=== PATIENT | male | born 1990 | race African-American/Black ===

== ENCOUNTER 2019-06-18 13:57 | Emergency (ER) | payer SELFPAY ==
[2019-06-18 14:11] VITALS: BP 148/85
[2019-06-18] MEDS ORDERED: ERYTHROMYCIN 0.5% OPH OINTMENT 3.5 GM TUBE OS ONE (14:37)
--- NOTE | 2019-06-18 14:43 | ER Document Report ---
HPI - HPI Patient complains to provider of: Right eye irritation sore throat Time Seen by Provider: 06/18/19 14:25 Onset: Yesterday Onset/Duration: Sudden Quality of pain: No pain Pain Level: Denies Context: This 29-year-old male presents emergency department with complaints of right eye irritation sore throat. Reports his eye started feeling irritated last night. He denies contacts. Denies trauma. He woke up this morning his eye was matted shut. He also reports his throat is hurting. Hurts to swallow. Denies fever vomiting diarrhea. Denies known exposure to pinkeye or strep throat but he just flew here from [place]. Reports his eye feels like it is itchy but denies pain denies having trouble with his vision. Patient reports he is eating and drinkin g okay but hurts when he swallows. Associated Symptoms: Sore throat Exacerbated by: Denies Relieved by: Denies Similar symptoms previously: No Recently seen / treated by doctor: No Past Medical History - General Information source: Patient - Social History Smoking Status: Unknown if Ever Smoked Cigarette use (# per day): No Frequency of alcohol use: None Drug Abuse: None Lives with: Family Family History: None Patient has suicidal ideation: No Patient has homicidal ideation: No - Medical History Medical History: Negative Surgical Hx: Negative Vertical Provider Document - CONSTITUTIONAL Agree With Documented VS: Yes Exam Limitations: No Limitations General Appearance: WD/WN, No Apparent Distress - HEENT HEENT: Atraumatic, Conjuctival Injection - Slight erythema to the right eye no obvious drainage noted patient is continually wiping his eye with a washcloth., Normocephalic, PERRLA, Pharyngeal Erythema - Some tonsillar hypertrophy to the left tonsil good airway clear voice no trismus no Carlos's no exudate no peritonsillar abscess. negative: Pharyngeal Exudate, Tympanic Membrane Red, Tympanic Membrane Bulging - NECK Neck: Normal Inspection, Supple. negative: Lymphadenopathy-Left, Lymphadenopathy-Right - RESPIRATORY Respiratory: Breath Sounds Normal, No Respiratory Distress - CARDIOVASCULAR Cardiovascular: Regular Rate, Regular Rhythm - GI/ABDOMEN Gastrointestinal: Abdomen Soft, Abdomen Non-Tender - BACK Back: Normal Inspection. negative: CVA Tenderness-Right, CVA Tenderness-Left - MUSCULOSKELETAL/EXTREMETIES Musculoskeletal/Extremeties: DESIREE LINDSAY - NEURO Level of Consciousness: Awake, Alert, Appropriate Motor/Sensory: No Motor Deficit - DERM Integumentary: Warm, Dry, No Rash Course - Re-evaluation Re-evalutation: 06/18/19 14:42 This 29-year-old male presents emergency department with right eye irritation and sore throat. Reports symptoms started last night. Reports he woke up this morning with his right eye matted shut from discharge. Patient just flew to [place] from [place] for work. He denies fever vomiting diarrhea. He reports no known exposure to pinkeye or strep throat. Patient speaking in a clear voice good airway. Strep ordered. Patient will be treated with erythromycin ointment for his bacterial conjunctivitis based on the matting this morning and symptoms.. 06/18/19 15:28 Patient was instructed on negative strep he was instructed on medication for bacterial conjunctivitis. Patient reports that he is traveling from [facility] flying to [place] flying to [place] flying to [place]. He will be treated now with injection of steroids. He was instructed to call back here on Sunday night to follow-up on his throat culture. He verbalized understanding to all instructions. Dictation of this chart was performed using voice recognition software; therefore, there may be some unintended grammatical errors. - Vital Signs Vital signs: Temp Pulse Resp BP Pulse Ox 98.2 F 80 18 148/85 H 99 06/18/19 14:09 06/18/19 14:09 06/18/19 14:09 06/18/19 14:09 06/18/19 14:09 Discharge - Discharge Clinical Impression: Bacterial conjunctivitis of left eye, Sore throat Condition: Stable Disposition: HOME, SELF-CARE Instructions: Conjunctivitis ([facility]), Eyedrop Use ([facility]), Sore Throat ([facility]) Additional Instructions: *You have been evaluated for a bacterial conjunctivitis, sore throat Apply erythromycin ointment half-inch ribbon to the bottom of your right eyelid 4 times a day for the next 5 days. Good handwashing do not reuse washcloths Your strep test was negative. A throat culture is pending. Should you need antibiotics we will contact you in the next 2 to 3 days. *In the meantime gargle with warm salt water and use throat lozenges for comfort *Do not let anyone drink/eat after you *Follow-up with a primary care provider within 1 week for recheck. *Return to ED for worsening condition change, needs Monitor your blood pressure. Your blood pressure was elevated today. This may be because you were anxious, in pain or because you need medication. It is important to follow up with your primary care provider for full evaluation. Forms: Return to Work, Elevated Blood Pressure
[2019-06-18] MEDS ORDERED: DEXAMETHASONE SOD PHOS INJ 10 MG/1 ML VIAL IM ONE (15:28)
== END 2019-06-18 15:39 | disposition home or self-care (01) ==
LOC: ER 13:57
DX: H10.9 Unspecified conjunctivitis (principal); B96.89 Other specified bacterial agents as the cause of diseases classified elsewhere; J02.9 Acute pharyngitis, unspecified; J35.1 Hypertrophy of tonsils
CPT/HCPCS: 87070; 87880; J3490; J1100; 87077